=== PATIENT | male | born 1970 | race American Indian/Alaskan Native ===

== ENCOUNTER 2018-04-06 23:18 | Emergency (ER) | payer SELFPAY ==
[2018-04-07] MEDS ORDERED: ASPIRIN PO ONE (01:15)
[2018-04-07 01:44] LABS: Basophils % (Auto) 0.4 % (0.0-1.8); Eosinophils % (Auto) 0.5 % (0.0-4.3); Hematocrit 34.6 % (35.5-45.6); Hemoglobin 11.6 gm/dl (11.8-15.2); Lymphocytes % (Auto) 24.8 % (13.4-35.0); Mean Corpuscular HGB Conc 34 % (32-34); Mean Corpuscular Hemoglobin 30 pg (28-32); Mean Corpuscular Volume 90 fl (84-94); Monocytes # (Auto) 0.5 K/mm3 (0.0-0.8); Monocytes % (Auto) 6.6 % (0.0-7.3); Platelet Count 238 K/mm3 (140-440); Red Blood Count 3.83 M/mm3 (3.65-5.03); Red Cell Distribution Width 12.7 % (13.2-15.2)
[2018-04-07 01:58] LABS: BUN/Creatinine Ratio 24; Blood Urea Nitrogen 44 mg/dL (9-20); Calcium 9.6 mg/dL (8.4-10.2); Hemolysis Index 4
[2018-04-07] MEDS ORDERED: CATAPRES PO ONE (10:26)
--- NOTE | 2018-04-07 10:34 | Emergency Department Report ---
ED General Adult HPI - General Chief complaint: High BP Stated complaint: POSS HIGH BP Time Seen by Provider: 04/07/18 10:13 Source: patient Mode of arrival: Ambulatory Limitations: No Limitations - History of Present Illness Initial comments: Patient is a 48-year-old gentleman who is presenting for medication refill. Patient been out of his latest blood pressure medicine for approximately one months however he states that other medicines he was prescribed 10 2015 worked much better. Patient has been having off and on right -sided chest discomfort as a sharp pain has several seconds and then dissipates. He also feels some low back strain as well. Patient denies any current chest pain shortness of breath fevers chills nausea vomiting diaphoresis or exertional component of his chest discomfort. Severity scale (0 -10): 0 - Related Data Previous Rx's Medication Instructions Recorded Last Taken Type ALBUTEROL Inhaler (OR & NICU) 2 puff IH QID PRN #1 inhalation 03/30/16 Unknown Rx [ProAir HFA Inhaler] Aspirin [Aspirin BABY CHEW TAB] 81 mg PO QDAY tab.chew 03/30/16 Unknown Rx Furosemide [Lasix] 20 mg PO QDAY #30 tablet 03/30/16 Unknown Rx Metoprolol [Lopressor TAB] 50 mg PO TID #30 tablet 03/30/16 Unknown Rx hydrALAZINE [Apresoline TAB] 100 mg PO BID #30 tab 03/30/16 Unknown Rx predniSONE [Deltasone] 10 mg PO QDAY #10 tablet 03/30/16 Unknown Rx Lisinopril [Zestril TAB] 40 mg PO QDAY #30 tablet 04/07/18 Unknown Rx amLODIPine [Norvasc] 10 mg PO QDAY #30 tablet 04/07/18 Unknown Rx Allergies Allergy/AdvReac Type Severity Reaction Status Date / Time No Known Allergies Allergy Unverified 03/29/16 01:19 ED Review of Systems ROS: Stated complaint: POSS HIGH BP Other details as noted in HPI Comment: All other systems reviewed and negative ED Past Medical Hx - Past Medical History Previous Medical History?: Yes Hx Hypertension: Yes Hx Congestive Heart Failure: No Hx Diabetes: No Hx Asthma: No Hx COPD: No - Surgical History Past Surgical History?: No - Social History Smoking Status: Former Smoker Substance Use Type: None - Medications Home Medications: Home Medications Medication Instructions Recorded Confirmed Last Taken Type ALBUTEROL Inhaler (OR & NICU) 2 puff IH QID PRN #1 inhalation 03/30/16 Unknown Rx [ProAir HFA Inhaler] Aspirin [Aspirin BABY CHEW TAB] 81 mg PO QDAY tab.chew 03/30/16 Unknown Rx Furosemide [Lasix] 20 mg PO QDAY #30 tablet 03/30/16 Unknown Rx Metoprolol [Lopressor TAB] 50 mg PO TID #30 tablet 03/30/16 Unknown Rx hydrALAZINE [Apresoline TAB] 100 mg PO BID #30 tab 03/30/16 Unknown Rx predniSONE [Deltasone] 10 mg PO QDAY #10 tablet 03/30/16 Unknown Rx Lisinopril [Zestril TAB] 40 mg PO QDAY #30 tablet 04/07/18 Unknown Rx amLODIPine [Norvasc] 10 mg PO QDAY #30 tablet 04/07/18 Unknown Rx ED Physical Exam - General Limitations: No Limitations General appearance: alert, in no apparent distress - Head Head exam: Present: atraumatic, normocephalic - Eye Eye exam: Present: normal appearance - ENT ENT exam: Present: mucous membranes moist - Neck Neck exam: Present: normal inspection - Respiratory Respiratory exam: Present: normal lung sounds bilaterally. Absent: respiratory distress, wheezes, rales, rhonchi - Cardiovascular Cardiovascular Exam: Present: regular rate, normal rhythm. Absent: systolic murmur, diastolic murmur, rubs, gallop - GI/Abdominal GI/Abdominal exam: Present: soft, normal bowel sounds. Absent: distended, tenderness, guarding, rebound - Rectal Rectal exam: Present: deferred - Extremities Exam Extremities exam: Present: normal inspection - Back Exam Back exam: Present: normal inspection - Neurological Exam Neurological exam: Present: alert, oriented X3 - Psychiatric Psychiatric exam: Present: normal affect, normal mood - Skin Skin exam: Present: warm, dry, intact, normal color. Absent: rash ED Course Vital Signs 04/07/18 04/07/18 00:54 07:58 Temperature 98.7 F 98.4 F Pulse Rate 84 68 Respiratory 16 15 Rate Blood Pressure 200/98 193/99 O2 Sat by Pulse 100 100 Oximetry ED Medical Decision Making - Lab Data Result diagrams: 04/07/18 01:28 04/07/18 01:28 Lab Results 04/07/18 04/07/1804/07/18 Range/Units 01:28 01:28 04:07 WBC 8.1 (4.5-11.0) K/mm3 RBC 3.83 (3.65-5.03) M/mm3 Hgb 11.6 L (11.8-15.2) gm/dl Hct 34.6 L (35.5-45.6) % MCV 90 (84-94) fl MCH 30 (28-32) pg MCHC 34 (32-34) % RDW 12.7 L (13.2-15.2) % Plt Count 238 (140-440) K/mm3 Lymph % (Auto) 24.8 (13.4-35.0) % [place] % (Auto) 6.6 (0.0-7.3) % Eos % (Auto) 0.5 (0.0-4.3) % Baso % (Auto) 0.4 (0.0-1.8) % Lymph # 2.0 (1.2-5.4) K/mm3 [place] # 0.5 (0.0-0.8) K/mm3 Eos # 0.0 (0.0-0.4) K/mm3 Baso # 0.0 (0.0-0.1) K/mm3 Seg Neutrophils % 67.7 (40.0-70.0) % Seg Neutrophils # 5.5 (1.8-7.7) K/mm3 Sodium 140 (137-145) mmol/L Potassium 4.4 (3.6-5.0) mmol/L Chloride 102.1 (98-107) mmol/L Carbon Dioxide 25 (22-30) mmol/L Anion Gap 17 mmol/L BUN 44 H (9-20) mg/dL Creatinine 1.8 H (0.8-1.5) mg/dL Estimated GFR 49 ml/min BUN/Creatinine Ratio 24 % Glucose 109 H (75-100) mg/dL Calcium 9.6 (8.4-10.2) mg/dL Troponin T < 0.010 < 0.010 (0.00-0.029) ng/mL 04/07/18 Range/Units 08:02 WBC (4.5-11.0) K/mm3 RBC (3.65-5.03) M/mm3 Hgb (11.8-15.2) gm/dl Hct (35.5-45.6) % MCV (84-94) fl MCH (28-32) pg MCHC (32-34) % RDW (13.2-15.2) % Plt Count (140-440) K/mm3 Lymph % (Auto) (13.4-35.0) % [place] % (Auto) (0.0-7.3) % Eos % (Auto) (0.0-4.3) % Baso % (Auto) (0.0-1.8) % Lymph # (1.2-5.4) K/mm3 [place] # (0.0-0.8) K/mm3 Eos # (0.0-0.4) K/mm3 Baso # (0.0-0.1) K/mm3 Seg Neutrophils % (40.0-70.0) % Seg Neutrophils # (1.8-7.7) K/mm3 Sodium (137-145) mmol/L Potassium (3.6-5.0) mmol/L Chloride (98-107) mmol/L Carbon Dioxide (22-30) mmol/L Anion Gap mmol/L BUN (9-20) mg/dL Creatinine (0.8-1.5) mg/dL Estimated GFR ml/min BUN/Creatinine Ratio % Glucose (75-100) mg/dL Calcium (8.4-10.2) mg/dL Troponin T < 0.010 (0.00-0.029) ng/mL - EKG Data -: EKG Interpreted by Ct - EKG Data 04/07/18 10:31 EKG shows sinus bradycardia rate of 56 normal axis normal intervals biatrial enlargement is present with LVH. Patient has T-wave inversions in the lateral and inferior leads. At time of dictation is 132. Patient's EKG was compared to EKG from 03/29/2016 7 shows no cervical change except for an improved heart rate. - Medical Decision Making Patient be referred to cardiology for further management. He has an appointment to see his primary care physician in one week. Patient will be restarted on lisinopril and Norvasc and will be discharged home. Patient is showing no signs of end organ damage at this time. Critical care attestation.: If time is entered above; I have spent that time in minutes in the direct care of this critically ill patient, excluding procedure time. ED Disposition Clinical Impression: Hypertensive urgency Disposition: DC-01 TO HOME OR SELFCARE Is pt being admited?: No Does the pt Need Aspirin: No Condition: Stable Instructions: Hypertension (ED) Prescriptions: amLODIPine [Norvasc] 10 mg PO QDAY #30 tablet Lisinopril [Zestril TAB] 40 mg PO QDAY #30 tablet Referrals: PRIMARY MD YESICA [Primary Care Provider] - 3-5 Days ILAN VARMA MD [Staff Physician] - 3-5 Days Time of Disposition: 10:34
[2018-04-07 11:16] VITALS: BP 156/74
== END 2018-04-07 11:13 | disposition home or self-care (01) ==
LOC: ED 23:18
DX: I16.0 Hypertensive urgency (principal); M54.5 Low back pain; Z87.891 Personal history of nicotine dependence; Z79.899 Other long term (current) drug therapy
CPT/HCPCS: 36415; 80048; 84484; 85025; 93005; 93010